=== PATIENT | female | born 1985 | race Caucasian/White ===

== ENCOUNTER 2018-08-16 20:56 | Emergency (ER) | payer SELFPAY ==
[~2018-08-16] VITALS: Ht 165.1 cm; Wt 123.8 kg
[2018-08-16 20:58] VITALS: BP 131/61; PULSE 75; RESP 18; Ht 165.1 cm; Wt 123.8 kg
== END 2018-08-16 21:01 | disposition left against medical advice (07) ==
LOC: FTE 20:56
DX: Z53.21 Procedure and treatment not carried out due to patient leaving prior to being seen by health care provider (principal)

== ENCOUNTER 2018-12-04 20:36 | Outpatient (CLI) | payer BC ==
[~2018-12-04] VITALS: Ht 165.1 cm; Wt 130.7 kg
[2018-12-04 20:47] VITALS: Ht 165.1 cm; Wt 130.7 kg
[2018-12-04] MEDS ORDERED: TERBUTALINE 1 MG/ML INJ SC PRN (23:00)
[2018-12-05] MEDS ORDERED: FOLI0.4T2 PO (01:34)
[2018-12-05] MEDS ORDERED: PNV1TABL12 PO (01:34)
--- NOTE | 2018-12-05 02:43 | PN ---
Triage Information Date/Time December 05, 2018 Reason for visit: Abd/pelvic pain Weeks of Gestation 22w 4d /Para 5/2 Diabetes: none Hypertention: none Additional information Pt reports lower back pain and pelvic pressure. No bleeding or leaking. P reports that in her prior 2 pregnancie she started to dilate at 29 weeks and was given terbutaline shots and delivered early at 37 weeks after breaking her water. Pt has not had care with this . POBHx: x 1 for macrosomia but the baby actually weighed less than 7#. for the 2nd one, <7# as well. Both at 37 weeks. PMHx: none. 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 PSHx: x 1. Cholecystectomy 2017. NKDA. Objective 103/58 T=98.3 Heart Rate: 130's Heart Rate Comments Doppler only, not by NST due to her BMI of 48. Contractions: None Results/Medications Result Diagram: 12/04/182157 Results 24 hrs Laboratory Tests Test 12/04/18 20:45 12/04/18 21:58 Urine Color YELLOW Urine Clarity SLIGHTLY CLOUDY A Urine pH 6.0 Urine Specific [place] 1.026 Urine Ketones NEGATIVE Urine Nitrite NEGATIVE Urine Bilirubin NEGATIVE Urine Urobilinogen NEGATIVE Urine Leukocyte Esterase NEGATIVE Urine Microscopic RBC 1 Urine Microscopic WBC 3 Urine Squamous Epithelial Cells FEW Urine Renal Epithelial Cells FEW A Urine Bacteria FEW A Urine Mucus MODERATE Urine Hemoglobin NEGATIVE Urine Glucose NEGATIVE Urine Total Protein NEGATIVE White Blood Count 10.4 Red Blood Count 3.59 L Hemoglobin 10.5 L Hematocrit 31.6 L Mean Corpuscular Volume 88.0 Mean Corpuscular Hemoglobin 29.2 Mean Corpuscular Hemoglobin Concent 33.2 Red Cell Distribution Width 13.0 Platelet Count 222 Mean Platelet Volume 10.2 Immature Granulocytes % 0.300 Neutrophils % 68.7 Lymphocytes % 21.5 Monocytes % 6.4 Eosinophils % 2.9 Basophils % 0.2 Nucleated Red Blood Cells % 0.0 Immature Granulocytes # 0.030 Neutrophils # 7.1 Lymphocytes # 2.2 Monocytes # 0.7 Eosinophils # 0.3 Basophils # 0.0 Nucleated Red Blood Cells # 0.0 Hepatitis B Surface Antigen NEGATIVE HIV (1&2) Antibody NEGATIVE Medications Current Medications Terbutaline Sulfate (Brethine) 0.25 mg ONCE PRN SC MODERATE PAIN LEVEL 4-6; Start 5/18/19 at 23:00 Imaging Results EFW 434 grams. S1. Breech. MVP 4.8 cm. CX 4.65 cm and closed. Disposition: Discharge Assessment/Plan A: IUP at 22w 4d. No care. H/o PTL with prior pregnancies. False labor. P: P.O. hydration and bedrest and the sx's have largely resolved. Pt has a birthday green party today for her 7 year old but it is already organized and other people will be able to be in charge. Pt needs to start care. labs were drawn and are normal. JASWANT PINA MD December 05, 2018 02:43
--- NOTE | 2018-12-05 03:09 | TRIAGE ---
OB Triage Datetime Report Generated by CPN: 12/05/2018 03:09 Datetime: 12/04/2018 23:09 EGA: 22.6 Datetime: 12/04/2018 21:03 Assessment Type: Triage Maternal Assessment Level of Consciousness: Fully Conscious DTR's/Clonus: DTRs 2+; No Clonus Headache: Denies Blurred Vision: No Respiratory Effort: Unlabored; Regular Rhythm; Equal Expansion Breath Sounds, Left: Clear and Equal Breath Sounds, Right: Clear and Equal Nausea/Vomiting: Denies RUQ Epigastric Pain: Denies Lower Extremities Edema: None Degree: None Upper Extremities Edema: None Degree: None Facial Edema: None Fall Risk Assessment History of Falling: (0) No Secondary Diagnosis: (0) No Ambulatory Aid: (0) Bedrest/Nurse Assist IV Therapy: (0) No Gait: (0) Normal/Bedrest/Immobile Mental Status: (0) Oriented to Own Ability Fall Score: 0 Fall Risk Score Definition: No Risk: No action required Datetime: 12/04/2018 20:57 Heart Rate Monitor Mode: Doppler Comments: FHT 124-146bpm over 1 min. Datetime: 12/04/2018 20:30 Time of Arrival: 12/04/2018 20:23 Arrived By: Wheelchair Arrived From: Home Chief Complaint: Pelvic pressure, low back pain Movement: Present Contractions: Denies/Absent Rupture of Membranes: Denies Vaginal Bleeding: None (Annotations: Data stored by N on behalf of user) Vaginal Discharge: Denies Recent Sexual Intercouse: Denies Abdominal Trauma: Not Applicable Patient Complaints: Other Time Provider Notified: 12/04/2018 21:10 Provider Notified: Bhavesh Initial Plan: FHT, TOCO, PN panel, PO hydration, PRN terb X1, EFW, CL.
== END 2018-12-05 02:35 | disposition home or self-care (01) ==
LOC: OBT 20:36 → L-D 20:36 → OBT 12-05 02:35
PROVIDERS: ATTEND Obstetrics & Gynecology
DX: O47.02 False labor before 37 completed weeks of gestation, second trimester (principal); O09.219 Supervision of pregnancy with history of pre-term labor, unspecified trimester; Z3A.22 22 weeks gestation of pregnancy
CPT/HCPCS: 76815; 76817; 81001; 81003; 85025; 86592; 86703; 86762; 86900; 86901; 87340; 96372; Z7500; G0463

== ENCOUNTER 2019-04-16 10:27 | Emergency (ER) | payer BC ==
[~2019-04-16] VITALS: Ht 165.1 cm; Wt 133.4 kg
[~2019-04-16 10:27] MED LIST: ACET500C5 PO; FOLI0.4T2 PO; IBUP-1561 PO; PNV1TABL12 PO
[2019-04-16 10:37] VITALS: Ht 165.1 cm; Wt 133.4 kg
[2019-04-16] MEDS ORDERED: ACETAMINOPHEN 500 MG TAB PO STA (11:22)
[2019-04-16 12:51] VITALS: BP 117/74; PULSE 71; RESP 18
== END 2019-04-16 12:52 | disposition home or self-care (01) ==
LOC: FTE 10:27
DX: O90.89 Other complications of the puerperium, not elsewhere classified (principal); M17.12 Unilateral primary osteoarthritis, left knee
CPT/HCPCS: 73562; 99283; Z7610